=== PATIENT | male | born 1995 | race Caucasian/White ===

== ENCOUNTER 2023-09-28 15:20 | Emergency (ER) | payer BC ==
[~2023-09-28] VITALS: Ht 177.8 cm; Wt 81.8 kg
[2023-09-28 15:34] VITALS: BP 137/72; PULSE 73; RESP 18; TEMP 99.1; O2SAT 97
[2023-09-28 16:20] LABS: MONOTEST NEGATIVE (Neg)
[2023-09-28 17:14] LABS: STREP A SCREEN NEGATIVE (Neg)
== END 2023-09-28 17:30 | disposition home or self-care (01) ==
LOC: ER 15:20
DX: J03.90 Acute tonsillitis, unspecified (principal)
CPT/HCPCS: 36415; 86308; 87081; 87880; 99283

== ENCOUNTER 2024-06-29 11:53 | Emergency (ER) | payer BC, MEDICAID ==
[~2024-06-29] VITALS: Ht 175.3 cm; Wt 91.3 kg
[2024-06-29] MEDS ORDERED: AMOX500C2 PO (14:36)
[2024-06-29 14:42] VITALS: BP 138/76; PULSE 90; RESP 18; TEMP 98.5; O2SAT 97
== END 2024-06-29 14:43 | disposition home or self-care (01) ==
LOC: ER 11:54
DX: K08.89 Other specified disorders of teeth and supporting structures (principal); K04.7 Periapical abscess without sinus; K02.9 Dental caries, unspecified
CPT/HCPCS: 99283